=== PATIENT | female | born 1935 | race Caucasian/White ===

== ENCOUNTER 2020-10-26 14:08 | Outpatient (CLI) | payer MEDICARE ==
[2020-10-26 17:32] LABS: #Basophils 0.1 10x3/uL (0.0-0.2); #Eosinphils 0.3 10x3/uL (0.0-0.5); #Neutrophils 5.4 10x3/uL (1.5-8.4); %Basophils 0.8 % (0.0-2.0); %Lymphocytes 34.2 % (18.0-47.0); %Monocytes 9.9 % (0.0-10.0); %Neutrophils 51.6 % (40.0-75.0); Mean Corpuscular HGB CONC 32.1 g/dL (32.0-36.0); Mean Corpuscular Hemoglobin 31.3 pg (27.0-33.0); Mean Corpuscular Volume 97.4 fl (81.6-98.3); Mean Platelet Volume 10.3 fl (7.4-10.4); Platelet Count 259 10x3/uL (150-450); RBC Distribution Width 13.9 % (11.5-14.5); Red Blood Cell (RBC) Count 3.52 10x6/uL (3.90-5.03); White Blood Cell (WBC) Count 10.5 10x3/uL (3.5-10.5)
[2020-10-26 17:36] LABS: Anion Gap 14 mmol/L (10-20); BUN (Urea Nitrogen) 37 mg/dL (9.8-20.1); Calc. Creatinine Clearance 0 mL/min (70-130); Calcium 9.4 mg/dL (7.8-10.44); Carbon Dioxide 25 mmol/L (23-31); Chloride 104 mmol/L (98-107); Glucose 92 mg/dL (83-110); Potassium 4.4 mmol/L (3.5-5.1); Sodium 139 mmol/L (136-145)
[2020-10-26 18:04] LABS: INR-International Normal Ratio 1.1; Prothrombin Time 12.4 sec (9.5-12.1)
[2020-10-27 01:52] LABS: SARS-CoV-2 PCR by NAA Not Detected (NotDetected)
== END 2020-10-26 14:09 | disposition home or self-care (01) ==
LOC: LABBT 14:08
PROVIDERS: ATTEND Orthopaedic Surgery
DX: Z01.818 Encounter for other preprocedural examination (principal); Z20.822 Contact with and (suspected) exposure to COVID-19; M17.12 Unilateral primary osteoarthritis, left knee
CPT/HCPCS: 80048; 85025; 85610; 87081; 93005; U0003; U0005; 87635; 93010

== ENCOUNTER 2020-10-31 07:52 | Inpatient (IN) | payer MEDICARE ==
[2020-10-31] MEDS ORDERED: Zolpidem Tartrate 5 MG TAB PO PRN ×2 (08:41→10:15)
[2020-10-31] MEDS ORDERED: Fentanyl 100 MCG/2 ML VIAL SLOW IVP PRN (08:41)
[2020-10-31] MEDS ORDERED: HYDROcodone/Acetaminophen 10/325 mg Tablet PO PRN ×3 (08:41→10:15)
[2020-10-31] MEDS ORDERED: diphenhydrAMINE 25 MG CAP PO PRN (08:41)
[2020-10-31] MEDS ORDERED: Acetaminophen 325 MG TAB PO PRN (08:41)
[2020-10-31] MEDS ORDERED: Promethazine HCl 25 MG/ML VIAL IM PRN ×3 (08:41→11:42)
[2020-10-31] MEDS ORDERED: Ondansetron PF 4 MG/2 ML Vial IVP PRN ×2 (08:41→10:15)
[2020-10-31] MEDS ORDERED: Midazolam HCl 2 mg/2 ml Vial ONE (09:10)
[2020-10-31] MEDS ORDERED: Fentanyl 100 MCG/2 ML VIAL ONE ×3 (09:11→12:46)
[2020-10-31] MEDS ORDERED: Tranexamic Acid 1,000 MG/10 ML VIAL ONE (09:41)
[2020-10-31] MEDS ORDERED: Sodium Chloride 0.9% 100 ML ONE (09:41)
[2020-10-31] MEDS ORDERED: Vancomycin 1.5 GRAM/300 ML BAG 1.5 GM in Premix Bag 1 BAG IVPB SCH (09:45)
[2020-10-31] MEDS ORDERED: Fentanyl 100 MCG/2 ML VIAL IV PRN (10:10)
[2020-10-31] MEDS ORDERED: traMADol HCl 50 MG TAB PO PRN ×2 (10:15)
[2020-10-31] MEDS ORDERED: Ropivacaine 0.2% 550 ML 550 ML NERVE BLCK SCH (10:15)
[2020-10-31] MEDS ORDERED: Ropivacaine 0.5% HCl/PF (150 MG/30 ML VIAL) ONE (10:21)
[2020-10-31] MEDS ORDERED: Dexamethasone 20 MG/5 ML VIAL ONE (10:21)
[2020-10-31] MEDS ORDERED: PROPOFOL 200 MG/20 ML VIAL ONE (10:21)
[2020-10-31] MEDS ORDERED: Ondansetron PF 4 MG/2 ML Vial ONE (10:21)
[2020-10-31] MEDS ORDERED: Lidocaine 1% PF 5 ML VIAL ONE (10:21)
[2020-10-31] MEDS ORDERED: Ropivacaine 2% HCl/PF (20 MG/10 ML VIAL) ONE (10:21)
[2020-10-31] MEDS ORDERED: Promethazine HCl 25 MG/ML VIAL SLOW IVP PRN (11:42)
[2020-10-31] MEDS ORDERED: Ondansetron HCl/PF 4 MG/2 ML Vial IVP PRN (11:42)
[2020-10-31] MEDS ORDERED: CEFAZOLIN 2 GM in Premix Bag 1 BAG IVPB SCH (14:00)
[2020-10-31] MEDS: Ketorolac Tromethamine 30 MG/ML VIAL IVP SCH ×2 (18:41→20:11)
[2020-10-31] MEDS: Sodium Chloride 0.9% 1,000 ML IV SCH ×2 (20:05→21:50)
[2020-10-31] MEDS: Amiodarone 200 MG TAB PO SCH (20:06)
[2020-10-31] MEDS: Amlodipine 10 MG TAB PO SCH (20:06)
[2020-10-31] MEDS: Aspirin 81 mg Enteric Coated Tablet PO SCH ×2 (20:10→21:50)
[2020-10-31] MEDS: Ferrous Gluconate 324 MG TAB PO SCH ×2 (20:10→21:50)
[2020-10-31] MEDS: Ezetimibe 10 MG TAB PO SCH (20:10)
[2020-10-31] MEDS: hydrALAZINE 25 MG TAB PO SCH ×2 (20:10→21:52)
[2020-10-31] MEDS: Losartan 25 MG TAB PO SCH (20:10)
[2020-10-31] MEDS: carBAMazepine 100 mg Chewable Tablet PO SCH ×2 (20:10→21:50)
[2020-10-31] MEDS: Furosemide 40 MG TAB PO SCH (20:10)
[2020-10-31] MEDS: Senokot S 8.6-50 MG TAB PO SCH ×2 (20:11→21:49)
[2020-10-31] MEDS: Multivitamin W/ Minerals 1 TAB PO SCH (20:11)
[2020-10-31] MEDS: Atorvastatin Calcium 40 MG TAB PO SCH (21:50)
[2020-11-01] MEDS: Ketorolac Tromethamine 30 MG/ML VIAL IVP SCH ×2 (00:56→05:22)
[2020-11-01] MEDS ORDERED: CEFAZOLIN 2 GM in Premix Bag 1 BAG IVPB SCH (02:00)
[2020-11-01] MEDS: Sodium Chloride 0.9% 1,000 ML IV SCH ×3 (04:26→23:39)
[2020-11-01 06:21] LABS: #Eosinphils 0.1 thou/uL (0.0-0.7); #Lymphocytes 3.4 thou/uL (1.20-3.40); #Monocytes 1.8 thou/uL (0.11-0.59); #Neutrophils 7.9 thou/uL (1.40-6.50); %Basophils 0.2 % (0.0-1.0); %Eosinophils 0.4 % (0.0-10.0); %Lymphocytes 25.5 % (21.0-51.0); %Monocytes 13.3 % (0.0-10.0); %Neutrophils 60.6 % (42.0-75.0); Hemoglobin 9.2 g/dL (12.0-16.0); Mean Corpuscular HGB CONC 32.9 g/dL (32.0-36.0); Mean Corpuscular Hemoglobin 31.4 pg (27.0-31.0); Mean Corpuscular Hemoglobin 31.6 pg (27.0-31.0); Mean Corpuscular Volume 95.7 fL (78.0-98.0); Mean Corpuscular Volume 95.8 fL (78.0-98.0); Mean Platelet Volume 7.4 fL (7.4-10.4); Mean Platelet Volume 7.6 fL (7.4-10.4); Platelet Count 167 thou/uL (130-400); Platelet Count 168 thou/uL (130-400); RBC Distribution Width 12.8 % (11.5-14.5); Red Blood Cell (RBC) Count 2.92 mill/uL (4.20-5.40); White Blood Cell (WBC) Count 13.1 thou/uL (4.8-10.8)
[2020-11-01 06:27] LABS: Hemoglobin A1c 5.8 % (4.0-6.0)
[2020-11-01 06:41] LABS: Anion Gap 13 mmol/L (10-20); BUN (Urea Nitrogen) 30 mg/dL (9.8-20.1); Calc. Creatinine Clearance 33 mL/min (70-130); Calcium 8.5 mg/dL (7.8-10.44); Carbon Dioxide 23 mmol/L (23-31); Chloride 104 mmol/L (98-107); Cholesterol 127 mg/dl (< 200 Desired); Glucose 104 mg/dL (83-110); HDL Cholesterol 43 mg/dL (>60 Neg Risk); LDL Cholesterol, Calculated 67 mg/dL; Potassium 4.5 mmol/L (3.5-5.1); Sodium 135 mmol/L (136-145); Triglycerides 87 mg/dL (Less than 150)
[2020-11-01] MEDS: carBAMazepine 100 mg Chewable Tablet PO SCH ×2 (09:19→20:50)
[2020-11-01] MEDS: Amiodarone 200 MG TAB PO SCH (09:19)
[2020-11-01] MEDS: Losartan 25 MG TAB PO SCH (09:20)
[2020-11-01] MEDS: Furosemide 40 MG TAB PO SCH (09:21)
[2020-11-01] MEDS: Ferrous Gluconate 324 MG TAB PO SCH ×2 (09:21→20:50)
[2020-11-01] MEDS: Multivitamin W/ Minerals 1 TAB PO SCH (09:21)
[2020-11-01] MEDS: Alogliptin 25 MG TAB PO SCH (09:21)
[2020-11-01] MEDS: Amlodipine 10 MG TAB PO SCH (09:21)
[2020-11-01] MEDS: Aspirin 81 mg Enteric Coated Tablet PO SCH ×2 (09:21→20:50)
[2020-11-01] MEDS: hydrALAZINE 25 MG TAB PO SCH ×2 (09:22→20:51)
[2020-11-01] MEDS: Ezetimibe 10 MG TAB PO SCH (09:22)
[2020-11-01] MEDS: HYDROcodone/Acetaminophen 10/325 mg Tablet PO PRN ×2 (09:31→21:21)
[2020-11-01] MEDS: Senokot S 8.6-50 MG TAB PO SCH ×2 (09:32→20:50)
[2020-11-01] MEDS: Spironolactone 100 MG TAB PO SCH (10:01)
[2020-11-01] MEDS: Atorvastatin Calcium 40 MG TAB PO SCH (20:50)
[2020-11-02] MEDS: HYDROcodone/Acetaminophen 10/325 mg Tablet PO PRN (04:08)
[2020-11-02 05:22] LABS: Hemoglobin 9.6 g/dL (12.0-16.0); Mean Corpuscular HGB CONC 32.7 g/dL (32.0-36.0); Mean Corpuscular Hemoglobin 31.9 pg (27.0-31.0); Mean Corpuscular Volume 97.4 fL (78.0-98.0); Mean Platelet Volume 8.2 fL (7.4-10.4); Platelet Count 170 thou/uL (130-400); RBC Distribution Width 12.9 % (11.5-14.5); White Blood Cell (WBC) Count 15.7 thou/uL (4.8-10.8)
[2020-11-02] MEDS ORDERED: Bisacodyl 10 MG SUPP PR PRN (08:29)
[2020-11-02] MEDS: Multivitamin W/ Minerals 1 TAB PO SCH (08:51)
[2020-11-02] MEDS: Ferrous Gluconate 324 MG TAB PO SCH ×2 (08:51→23:16)
[2020-11-02] MEDS: hydrALAZINE 25 MG TAB PO SCH ×2 (08:51→23:15)
[2020-11-02] MEDS: Senokot S 8.6-50 MG TAB PO SCH (08:51)
[2020-11-02] MEDS: Losartan 25 MG TAB PO SCH (08:51)
[2020-11-02] MEDS: Amiodarone 200 MG TAB PO SCH (08:52)
[2020-11-02] MEDS: Aspirin 81 mg Enteric Coated Tablet PO SCH ×2 (08:52→23:14)
[2020-11-02] MEDS: Furosemide 40 MG TAB PO SCH (08:52)
[2020-11-02] MEDS: Amlodipine 10 MG TAB PO SCH (08:52)
[2020-11-02] MEDS: carBAMazepine 100 mg Chewable Tablet PO SCH ×2 (08:52→23:14)
[2020-11-02] MEDS: Alogliptin 25 MG TAB PO SCH (08:52)
[2020-11-02] MEDS: Ezetimibe 10 MG TAB PO SCH (08:53)
[2020-11-02] MEDS: Spironolactone 100 MG TAB PO SCH (08:53)
[2020-11-02] MEDS: Sodium Chloride 0.9% 1,000 ML IV SCH ×2 (11:08→21:46)
[2020-11-02] MEDS ORDERED: Magnesium Citrate 300 ML BOT PO SCH (11:45)
[2020-11-02] MEDS ORDERED: Fleet Enema 133 ML BOT FS SCH (12:30)
[2020-11-02] MEDS ORDERED: Polyethylene Glycol 3350 17 GM Packet PO SCH (15:00)
[2020-11-02] MEDS ORDERED: Morphine 4 MG/ML VIAL SLOW IVP PRN (20:46)
[2020-11-03 05:43] LABS: Anion Gap 14 mmol/L (10-20); BUN (Urea Nitrogen) 28 mg/dL (9.8-20.1); Calc. Creatinine Clearance 32 mL/min (70-130); Calcium 8.6 mg/dL (7.8-10.44); Carbon Dioxide 25 mmol/L (23-31); Chloride 99 mmol/L (98-107); Glucose 124 mg/dL (83-110); Potassium 4.5 mmol/L (3.5-5.1); Sodium 133 mmol/L (136-145)
[2020-11-03] MEDS: Morphine 4 MG/ML VIAL SLOW IVP PRN ×2 (07:33→08:25)
[2020-11-03] MEDS: Sodium Chloride 0.9% 1,000 ML IV SCH ×3 (07:37→20:45)
[2020-11-03] MEDS ORDERED: Metoclopramide HCl 10 MG/2 ML VIAL IVP SCH (08:15)
[2020-11-03 08:25] LABS: Hemoglobin 10.2 g/dL (12.0-16.0); Mean Corpuscular HGB CONC 32.2 g/dL (32.0-36.0); Mean Corpuscular Hemoglobin 30.8 pg (27.0-31.0); Mean Corpuscular Volume 95.7 fL (78.0-98.0); Mean Platelet Volume 7.8 fL (7.4-10.4); Platelet Count 199 thou/uL (130-400); RBC Distribution Width 13.1 % (11.5-14.5); Red Blood Cell (RBC) Count 3.31 mill/uL (4.20-5.40); White Blood Cell (WBC) Count 8.5 thou/uL (4.8-10.8)
[2020-11-03 08:45] LABS: Band 49 % (5-11); Lymphocytes 13 % (21-51); MDiff Complete? YES; Metamyelocyte 9 % (0-0); Monocytes 8 % (0-10); Neutrophil 21 % (42-75); Polychromasia SLIGHT = 2-3 cells (100X) (0-2/hpf); Reflex for Review?? YES; Vacuoles SLIGHT
[2020-11-03] MEDS: Spironolactone 100 MG TAB PO SCH (10:54)
[2020-11-03] MEDS: carBAMazepine 100 mg Chewable Tablet PO SCH ×2 (10:54→20:55)
[2020-11-03] MEDS: Amlodipine 10 MG TAB PO SCH (10:54)
[2020-11-03] MEDS: Aspirin 81 mg Enteric Coated Tablet PO SCH (10:54)
[2020-11-03] MEDS: Amiodarone 200 MG TAB PO SCH (10:54)
[2020-11-03] MEDS: Ezetimibe 10 MG TAB PO SCH (10:55)
[2020-11-03] MEDS: Losartan 25 MG TAB PO SCH (10:55)
[2020-11-03] MEDS: Ferrous Gluconate 324 MG TAB PO SCH (10:55)
[2020-11-03] MEDS: hydrALAZINE 25 MG TAB PO SCH (10:55)
[2020-11-03] MEDS ORDERED: Iopamidol 370 76% 50 ML VIAL FS ONE (11:04)
[2020-11-03] MEDS ORDERED: Sodium Chloride 0.9% 10 ML ONE (11:05)
[2020-11-03] MEDS ORDERED: Bupivacaine 0.25% HCL 30 ML VIAL ONE (11:05)
[2020-11-03] MEDS ORDERED: Lidocaine 1% w/Epinephrine 1:100K 20 ML VIAL ONE (11:05)
[2020-11-03] MEDS ORDERED: Levofloxacin 500 mg/D5W 100 ml Premix Bag ONE ×2 (11:12→11:42)
[2020-11-03] MEDS ORDERED: Fentanyl 250 MCG/5 ML VIAL ONE (11:41)
[2020-11-03] MEDS ORDERED: Fentanyl 100 MCG/2 ML VIAL ONE (11:43)
[2020-11-03] MEDS ORDERED: PHENYLEPHRINE-NS 100 MCG/ML 10 ML SYRINGE ONE (12:11)
[2020-11-03] MEDS ORDERED: Lidocaine 1% PF 5 ML VIAL ONE (12:11)
[2020-11-03] MEDS ORDERED: Rocuronium Bromide 10 MG/ML (10ML VIAL) ONE (12:11)
[2020-11-03] MEDS ORDERED: Ondansetron PF 4 MG/2 ML Vial ONE (12:11)
[2020-11-03] MEDS ORDERED: ePHEDrine Sulfate 50 MG/10 ML VIAL ONE (12:11)
[2020-11-03] MEDS ORDERED: Glycopyrrolate 0.2 MG/ML 5 ML SYRINGE ONE (12:11)
[2020-11-03] MEDS ORDERED: Succinylcholine 200 MG/10 ml SYRINGE FS ONE (12:11)
[2020-11-03] MEDS ORDERED: Dexamethasone 20 MG/5 ML VIAL ONE (12:11)
[2020-11-03] MEDS ORDERED: PROPOFOL 200 MG/20 ML VIAL ONE (12:11)
[2020-11-03] MEDS ORDERED: Bupivacaine HCl 0.5%/Epinephrine 1:200,000/PF 30 ml Vial ONE (14:00)
[2020-11-03] MEDS ORDERED: SUGAMMADEX SODIUM 200 MG/2 ML VIAL ONE (14:05)
[2020-11-03] MEDS ORDERED: Ondansetron HCl/PF 4 MG/2 ML Vial IVP PRN (14:16)
[2020-11-03] MEDS ORDERED: Promethazine HCl 25 MG/ML VIAL IM PRN (14:16)
[2020-11-03] MEDS ORDERED: Promethazine HCl 25 MG/ML VIAL SLOW IVP PRN (14:16)
[2020-11-03] MEDS ORDERED: Labetalol HCl 100 MG/20 ML VIAL SLOW IVP PRN (16:00)
[2020-11-03] MEDS ORDERED: hydrALAZINE 20 MG/ML VIAL SLOW IVP PRN (16:00)
[2020-11-03] MEDS: Pantoprazole 40 MG VIAL IVP SCH (20:54)
[2020-11-03] MEDS: Enoxaparin Sodium 30 MG/0.3 ML SYRINGE SC SCH (20:55)
[2020-11-04 05:17] LABS: Hemoglobin 8.2 g/dL (12.0-16.0); Mean Corpuscular HGB CONC 31.8 g/dL (32.0-36.0); Mean Corpuscular Hemoglobin 30.6 pg (27.0-31.0); Mean Corpuscular Volume 96.4 fL (78.0-98.0); Mean Platelet Volume 7.7 fL (7.4-10.4); Platelet Count 193 thou/uL (130-400); Red Blood Cell (RBC) Count 2.69 mill/uL (4.20-5.40); White Blood Cell (WBC) Count 11.7 thou/uL (4.8-10.8)
[2020-11-04] MEDS: Sodium Chloride 0.9% 1,000 ML IV SCH ×4 (05:20→20:32)
[2020-11-04 05:33] LABS: Anion Gap 10 mmol/L (10-20); BUN (Urea Nitrogen) 35 mg/dL (9.8-20.1); Calc. Creatinine Clearance 31 mL/min (70-130); Calcium 8.3 mg/dL (7.8-10.44); Carbon Dioxide 24 mmol/L (23-31); Chloride 103 mmol/L (98-107); Glucose 100 mg/dL (83-110); Potassium 4.8 mmol/L (3.5-5.1); Sodium 132 mmol/L (136-145)
[2020-11-04 05:46] LABS: Band 60 % (5-11); Eosinophils 1 % (0-10); Lymphocytes 11 % (21-51); MDiff Complete? YES; Metamyelocyte 3 % (0-0); Monocytes 1 % (0-10); Neutrophil 24 % (42-75)
[2020-11-04] MEDS: Losartan 25 MG TAB PO SCH (10:20)
[2020-11-04] MEDS: Pantoprazole 40 MG VIAL IVP SCH ×2 (10:20→20:32)
[2020-11-04] MEDS: carBAMazepine 100 mg Chewable Tablet PO SCH ×2 (10:21→20:31)
[2020-11-04] MEDS: Spironolactone 100 MG TAB PO SCH (10:22)
[2020-11-04] MEDS: Amiodarone 200 MG TAB PO SCH (10:22)
[2020-11-04] MEDS: Enoxaparin Sodium 30 MG/0.3 ML SYRINGE SC SCH (20:32)
[2020-11-05] MEDS: Sodium Chloride 0.9% 1,000 ML IV SCH ×4 (02:02→12:57)
[2020-11-05] MEDS: Pantoprazole 40 MG VIAL IVP SCH ×2 (09:38→21:48)
[2020-11-05] MEDS: Spironolactone 100 MG TAB PO SCH (09:38)
[2020-11-05] MEDS: Losartan 25 MG TAB PO SCH (09:41)
[2020-11-05] MEDS: Amiodarone 200 MG TAB PO SCH (09:42)
[2020-11-05] MEDS: carBAMazepine 100 mg Chewable Tablet PO SCH ×2 (09:42→21:47)
[2020-11-05 09:47] LABS: Hemoglobin 8.3 g/dL (12.0-16.0); Mean Corpuscular HGB CONC 33.2 g/dL (32.0-36.0); Mean Corpuscular Volume 96.5 fL (78.0-98.0); Mean Platelet Volume 7.7 fL (7.4-10.4); Platelet Count 189 thou/uL (130-400); RBC Distribution Width 13.2 % (11.5-14.5); Red Blood Cell (RBC) Count 2.59 mill/uL (4.20-5.40); White Blood Cell (WBC) Count 20.1 thou/uL (4.8-10.8)
[2020-11-05 09:53] LABS: MDiff Complete? YES
[2020-11-05 09:54] LABS: Band 9 % (5-11); Eosinophils 1 % (0-10); Lymphocytes 5 % (21-51); Monocytes 7 % (0-10); Neutrophil 78 % (42-75); Platelet Morphology Comment Appears Adequate; RBC Morphology Normal; Toxic Granulation SLIGHT; Vacuoles SLIGHT
[2020-11-05 10:03] LABS: Anion Gap 17 mmol/L (10-20); BUN (Urea Nitrogen) 30 mg/dL (9.8-20.1); Calc. Creatinine Clearance 39 mL/min (70-130); Calcium 8.6 mg/dL (7.8-10.44); Carbon Dioxide 13 mmol/L (23-31); Chloride 112 mmol/L (98-107); Glucose 74 mg/dL (83-110); Potassium 5.2 mmol/L (3.5-5.1); Sodium 137 mmol/L (136-145)
[2020-11-05] MEDS ORDERED: Vancomycin HCl 1 GM in Sodium Chloride 0.9% 250 ML 250 ML IVPB SCH (11:00)
[2020-11-05 11:30] LABS: Actual Bicarbonate (HCO3a) 18.4 mEq/L (22-28); Base Excess (BEa) -6.2 mEq/L (-2.0 to +3.0); CO2 Tension 32.8 mmHg (35.0-45.0); Calcium, Ionized (arterial) 1.17 mmol/L (1.12-1.30); Carboxyhemoglobin (COHb) 0.3 gm% (0.0-3.0); Hemoglobin (Hb) 9.4 g/dL (12.0-16.0); O2 Tension (PaO2), arterial 72.6 mmHg (> 60.0); Potassium - ABG Lab 4.31 mmol/L (3.70-5.30); pH, Arterial 7.37 (7.35-7.45)
[2020-11-05] MEDS ORDERED: Lactated Ringer's 1,000 ML IV SCH (11:30)
[2020-11-05 11:32] LABS: Puncture Site RBA
[2020-11-05] MEDS ORDERED: Iopamidol 370 76% 50 ML VIAL FS ONE (12:00)
[2020-11-05] MEDS ORDERED: Iopamidol-370 76% 500 ML 1 ML ONE (12:00)
[2020-11-05 12:03] LABS: Lactic Acid 0.9 mmol/L (0.5-2.2)
[2020-11-05] MEDS: Vancomycin HCl 750 MG in Sodium Chloride 0.9% 250 ML 250 ML IVPB SCH (12:38)
[2020-11-05 14:21] LABS: Anion Gap 14 mmol/L (10-20); BUN (Urea Nitrogen) 29 mg/dL (9.8-20.1); Calc. Creatinine Clearance 40 mL/min (70-130); Calcium 8.9 mg/dL (7.8-10.44); Carbon Dioxide 19 mmol/L (23-31); Chloride 109 mmol/L (98-107); Glucose 80 mg/dL (83-110); Potassium 4.4 mmol/L (3.5-5.1); Sodium 138 mmol/L (136-145)
[2020-11-05] MEDS ORDERED: Furosemide 40 MG/4 ML VIAL SLOW IVP SCH (14:30)
[2020-11-05] MEDS: metroNIDAZOLE 500 MG in Premix Bag 1 BAG IVPB SCH ×2 (17:30→21:48)
[2020-11-05] MEDS: Enoxaparin Sodium 30 MG/0.3 ML SYRINGE SC SCH (22:11)
[2020-11-06 05:31] LABS: ALT (SGPT) 47 U/L (8-55); AST (SGOT) 65 U/L (5-34); Albumin 2.5 g/dL (3.4-4.8); Alkaline Phosphatase 63 U/L (40-110); Anion Gap 16 mmol/L (10-20); BUN (Urea Nitrogen) 34 mg/dL (9.8-20.1); Bilirubin, Total 0.5 mg/dL (0.2-1.2); Calc. Creatinine Clearance 35 mL/min (70-130); Calcium 8.7 mg/dL (7.8-10.44); Carbon Dioxide 21 mmol/L (23-31); Chloride 104 mmol/L (98-107); Globulin 3.8 g/dL (2.4-3.5); Glucose 80 mg/dL (83-110); Protein, Total 6.3 g/dL (5.8-8.1); Sodium 137 mmol/L (136-145)
[2020-11-06 06:13] LABS: Hemoglobin 8.5 g/dL (12.0-16.0); Mean Corpuscular HGB CONC 33.3 g/dL (32.0-36.0); Mean Corpuscular Hemoglobin 32.3 pg (27.0-31.0); Mean Corpuscular Volume 97.2 fL (78.0-98.0); Mean Platelet Volume 7.9 fL (7.4-10.4); Platelet Count 231 thou/uL (130-400); RBC Distribution Width 13.4 % (11.5-14.5); Red Blood Cell (RBC) Count 2.63 mill/uL (4.20-5.40); White Blood Cell (WBC) Count 18.8 thou/uL (4.8-10.8)
[2020-11-06 06:42] LABS: Band 16 % (5-11); Lymphocytes 17 % (21-51); MDiff Complete? YES; Monocytes 4 % (0-10); Neutrophil 63 % (42-75)
[2020-11-06] MEDS: metroNIDAZOLE 500 MG in Premix Bag 1 BAG IVPB SCH ×3 (06:42→21:07)
[2020-11-06] MEDS: Pantoprazole 40 MG VIAL IVP SCH ×2 (09:30→21:07)
[2020-11-06] MEDS: carBAMazepine 100 mg Chewable Tablet PO SCH ×2 (09:31→21:06)
[2020-11-06] MEDS: Amiodarone 200 MG TAB PO SCH ×2 (09:38→21:06)
[2020-11-06] MEDS: Losartan 25 MG TAB PO SCH (09:38)
[2020-11-06] MEDS ORDERED: traMADol HCl 50 MG TAB PO PRN (11:20)
[2020-11-06] MEDS ORDERED: Metoprolol Tartrate 25 MG TAB PO SCH (12:15)
[2020-11-06] MEDS: Acetaminophen 500 MG TAB PO SCH ×2 (12:42→17:19)
[2020-11-06] MEDS: Vancomycin HCl 750 MG in Sodium Chloride 0.9% 250 ML 250 ML IVPB SCH (12:42)
[2020-11-06] MEDS: Gabapentin 300 MG CAP PO SCH ×2 (14:09→21:05)
[2020-11-06] MEDS: Enoxaparin Sodium 30 MG/0.3 ML SYRINGE SC SCH (21:04)
[2020-11-06] MEDS: Metoprolol Tartrate 50 MG TAB PO SCH (21:06)
[2020-11-07] MEDS: Acetaminophen 500 MG TAB PO SCH ×5 (00:05→18:11)
[2020-11-07 05:22] LABS: Hemoglobin 7.2 g/dL (12.0-16.0); Mean Corpuscular HGB CONC 30.2 g/dL (32.0-36.0); Mean Corpuscular Hemoglobin 29.3 pg (27.0-31.0); Mean Corpuscular Volume 96.8 fL (78.0-98.0); Mean Platelet Volume 7.6 fL (7.4-10.4); Platelet Count 241 thou/uL (130-400); RBC Distribution Width 13.2 % (11.5-14.5); Red Blood Cell (RBC) Count 2.46 mill/uL (4.20-5.40); White Blood Cell (WBC) Count 13.3 thou/uL (4.8-10.8)
[2020-11-07 05:32] LABS: Anion Gap 13 mmol/L (10-20); BUN (Urea Nitrogen) 31 mg/dL (9.8-20.1); Calc. Creatinine Clearance 45 mL/min (70-130); Calcium 8.5 mg/dL (7.8-10.44); Carbon Dioxide 22 mmol/L (23-31); Chloride 107 mmol/L (98-107); Glucose 102 mg/dL (83-110); Sodium 138 mmol/L (136-145)
[2020-11-07 05:55] LABS: Band 23 % (5-11); Eosinophils 2 % (0-10); Lymphocytes 5 % (21-51); MDiff Complete? YES; Monocytes 12 % (0-10); Neutrophil 58 % (42-75)
[2020-11-07] MEDS: metroNIDAZOLE 500 MG in Premix Bag 1 BAG IVPB SCH (06:20)
[2020-11-07] MEDS: Metoprolol Tartrate 50 MG TAB PO SCH ×2 (08:43→20:20)
[2020-11-07] MEDS: Losartan 25 MG TAB PO SCH (08:43)
[2020-11-07] MEDS: Amiodarone 200 MG TAB PO SCH ×2 (08:43→20:20)
[2020-11-07] MEDS: carBAMazepine 100 mg Chewable Tablet PO SCH ×2 (08:43→20:20)
[2020-11-07] MEDS: Gabapentin 300 MG CAP PO SCH ×3 (08:43→20:20)
[2020-11-07] MEDS: Pantoprazole 40 MG VIAL IVP SCH (08:44)
[2020-11-07] MEDS ORDERED: Fluconazole In NaCl,Iso-Osm 200 MG in Premix Bag 1 BAG IVPB SCH (14:00)
[2020-11-07] MEDS: Rivaroxaban 10 MG TAB PO SCH (16:03)
[2020-11-08] MEDS: Acetaminophen 500 MG TAB PO SCH ×4 (00:09→17:21)
[2020-11-08 05:28] LABS: Band 12 % (5-11); Eosinophils 1 % (0-10); Hemoglobin 7.8 g/dL (12.0-16.0); Hypochromia SLIGHT = 6-15 cells (100X) (0-5/hpf); Lymphocytes 7 % (21-51); MDiff Complete? YES; Mean Corpuscular HGB CONC 31.2 g/dL (32.0-36.0); Mean Corpuscular Hemoglobin 30.6 pg (27.0-31.0); Mean Corpuscular Volume 98.1 fL (78.0-98.0); Mean Platelet Volume 7.6 fL (7.4-10.4); Monocytes 4 % (0-10); Neutrophil 76 % (42-75); Platelet Count 253 thou/uL (130-400); Platelet Morphology Comment Appears Adequate; RBC Distribution Width 13.4 % (11.5-14.5); Red Blood Cell (RBC) Count 2.54 mill/uL (4.20-5.40); White Blood Cell (WBC) Count 16.3 thou/uL (4.8-10.8)
[2020-11-08 06:31] LABS: Anion Gap 14 mmol/L (10-20); BUN (Urea Nitrogen) 29 mg/dL (9.8-20.1); Calc. Creatinine Clearance 53 mL/min (70-130); Calcium 8.4 mg/dL (7.8-10.44); Carbon Dioxide 21 mmol/L (23-31); Chloride 106 mmol/L (98-107); Glucose 93 mg/dL (83-110); Potassium 3.9 mmol/L (3.5-5.1); Sodium 137 mmol/L (136-145)
[2020-11-08] MEDS: Gabapentin 300 MG CAP PO SCH ×3 (08:05→20:12)
[2020-11-08] MEDS: Metoprolol Tartrate 50 MG TAB PO SCH ×2 (08:05→20:12)
[2020-11-08] MEDS: Amiodarone 200 MG TAB PO SCH ×2 (08:05→20:12)
[2020-11-08] MEDS: Losartan 25 MG TAB PO SCH (08:05)
[2020-11-08] MEDS: carBAMazepine 100 mg Chewable Tablet PO SCH ×2 (08:05→20:12)
[2020-11-08 08:28] VITALS: BMI 35.6
[2020-11-08] MEDS: Rivaroxaban 10 MG TAB PO SCH (17:21)
[2020-11-09] MEDS: Acetaminophen 500 MG TAB PO SCH ×3 (00:31→12:22)
[2020-11-09] MEDS: Metoprolol Tartrate 50 MG TAB PO SCH (08:21)
[2020-11-09] MEDS: carBAMazepine 100 mg Chewable Tablet PO SCH (08:21)
[2020-11-09] MEDS: Amiodarone 200 MG TAB PO SCH (08:21)
[2020-11-09] MEDS: Gabapentin 300 MG CAP PO SCH ×2 (08:21→15:29)
[2020-11-09] MEDS: Losartan 25 MG TAB PO SCH (08:21)
[2020-11-09] MEDS: Rivaroxaban 10 MG TAB PO SCH (15:29)
[2020-11-09 16:29] VITALS: BP 134/60; TEMP 98.2
[2020-11-13] MEDS ORDERED: Amiodarone 200 MG TAB PO SCH (09:00)
== END 2020-11-09 16:15 | disposition swing bed (61) | DRG 469 ==
LOC: SDC 07:52 → SURG A 18:24 → 2NO 11-05 16:33
PROVIDERS: ADMIT Hospitalist; ATTEND Internal Medicine
PROC: 0SRC0J9 Replacement of Right Knee Joint with Synthetic Substitute, Cemented, Open Approach (ICD-10-PCS; principal; 2020-10-31)
PROC: 0DQ70ZZ Repair Stomach, Pylorus, Open Approach (ICD-10-PCS; 2020-11-03)
PROC: 0DU907Z Supplement Duodenum with Autologous Tissue Substitute, Open Approach (ICD-10-PCS; 2020-11-03)
PROC: 02H633Z Insertion of Infusion Device into Right Atrium, Percutaneous Approach (ICD-10-PCS; 2020-11-03)
DX: M17.12 Unilateral primary osteoarthritis, left knee (principal); Z20.822 Contact with and (suspected) exposure to COVID-19; K26.5 Chronic or unspecified duodenal ulcer with perforation; K25.5 Chronic or unspecified gastric ulcer with perforation; K65.9 Peritonitis, unspecified; A41.9 Sepsis, unspecified organism; K56.7 Ileus, unspecified; N18.4 Chronic kidney disease, stage 4 (severe); I13.0 Hypertensive heart and chronic kidney disease with heart failure and stage 1 through stage 4 chronic kidney disease, or unspecified chronic kidney disease; D62 Acute posthemorrhagic anemia; E87.2 Acidosis; E11.22 Type 2 diabetes mellitus with diabetic chronic kidney disease; G50.0 Trigeminal neuralgia; I50.9 Heart failure, unspecified; E78.5 Hyperlipidemia, unspecified; K59.09 Other constipation; E11.51 Type 2 diabetes mellitus with diabetic peripheral angiopathy without gangrene; I25.10 Atherosclerotic heart disease of native coronary artery without angina pectoris; I48.0 Paroxysmal atrial fibrillation; E78.00 Pure hypercholesterolemia, unspecified; E87.5 Hyperkalemia; Z80.7 Family history of other malignant neoplasms of lymphoid, hematopoietic and related tissues; Z90.49 Acquired absence of other specified parts of digestive tract; Z95.1 Presence of aortocoronary bypass graft; Z95.5 Presence of coronary angioplasty implant and graft; Z95.828 Presence of other vascular implants and grafts; Z98.890 Other specified postprocedural states; Z87.891 Personal history of nicotine dependence; Z81.1 Family history of alcohol abuse and dependence; Z83.3 Family history of diabetes mellitus; Z80.6 Family history of leukemia; Z82.0 Family history of epilepsy and other diseases of the nervous system; Z88.5 Allergy status to narcotic agent; Z79.01 Long term (current) use of anticoagulants; Z79.899 Other long term (current) drug therapy
CPT/HCPCS: 36415; 36416; 36600; 71045; 74018; 74019; 74022; 74176; 74177; 80048; 80053; 80061; 82805; 83036; 83605; 85025; 85027; 85060; 93005; 93010; 93306; A4306; C1713; C1751; C1776; C9113; J0690; J1100; J1450; J1650; J1885; J1940; J1956; J2250; J2270; J2405; J2704; J2765; J2795; J3010; J3370; J3490; J7050; Q9967; S0020

== ENCOUNTER 2022-06-14 14:47 | Inpatient (IN) | payer MEDICARE ==
[2022-06-14] MEDS ORDERED: TETANUS, DIPHTHERIA TOX,ADULT (TDVAX) 0.5 ML VIAL IM ONE (16:17)
[2022-06-14] MEDS ORDERED: Dextrose 5% in Water 1,000 ML IV PRN (16:17)
[2022-06-14] MEDS ORDERED: HumaLOG 300 UNITS/3 ML VIAL SC PRN (16:17)
[2022-06-14] MEDS ORDERED: Morphine 2 MG/ML VIAL SLOW IVP PRN (16:17)
[2022-06-14] MEDS ORDERED: Dextrose 50% Abboject 50 ML SYRINGE SLOW IVP PRN (16:17)
[2022-06-14] MEDS ORDERED: Melatonin 3 MG TAB PO PRN (16:21)
[2022-06-14] MEDS: Acetaminophen/Codeine 30-300mg Tablet PO SCH (17:05)
[2022-06-14] MEDS: Acetaminophen 325 MG TAB PO SCH (18:00)
[2022-06-14] MEDS ORDERED: Acetaminophen 325 MG TAB PO SCH (18:00)
[2022-06-14 19:38] VITALS: BMI 28.3
[2022-06-14] MEDS ORDERED: Famotidine/PF 20 mg/2ml Vial SLOW IVP SCH (21:00)
[2022-06-14] MEDS: Gabapentin 100 MG CAP PO SCH (21:06)
[2022-06-14] MEDS: Sodium Chloride 0.9% 1,000 ML IV SCH (21:09)
[2022-06-14 21:50] LABS: Bacteria/HPF None Seen HPF (None Seen); Bilirubin Negative (Negative); Blood, Urine Negative (Negative); CAUTI Indications for Culture Pelvic or flank pain; Clarity Clear (Clear); Glucose, Urine (Dipstick) Normal (Negative); Ketone, Urine Negative (Negative); Leukocyte Negative Leu/uL (Negative); Nitrite Negative (Negative); Protein, Urine (Dipstick) 20 mg/dL (Neg-Trace); RBC/HPF 0-3 HPF (0-3); Specific Gravity, Urine 1.012 (1.002-1.036); Squamous Epithelial 0-3 HPF (0-3); Urobilinogen Normal mg/dL (Less than 2); WBC/HPF None Seen HPF (0-3); pH, Urine 6.5 (5.0-9.0)
[2022-06-14 21:52] LABS: Urine Culture Reflex No No
[2022-06-15] MEDS: Acetaminophen/Codeine 30-300mg Tablet PO SCH ×5 (00:01→21:11)
[2022-06-15] MEDS: Acetaminophen 325 MG TAB PO SCH ×5 (00:02→23:51)
[2022-06-15 05:20] LABS: #Eosinphils 0.1 thou/uL (0.0-0.7); #Lymphocytes 4.1 thou/uL (1.20-3.40); #Neutrophils 3.9 thou/uL (1.40-6.50); %Basophils 0.3 % (0.0-1.0); %Eosinophils 1.6 % (0.0-10.0); %Lymphocytes 44.5 % (21.0-51.0); %Monocytes 10.8 % (0.0-10.0); %Neutrophils 42.8 % (42.0-75.0); Hemoglobin 10.5 g/dL (12.0-16.0); Mean Corpuscular HGB CONC 32.6 g/dL (32.0-36.0); Mean Corpuscular Volume 98.2 fl (78.0-98.0); Mean Platelet Volume 7.8 fL (7.4-10.4); Platelet Count 179 10x3/uL (130-400); RBC Distribution Width 13.6 % (11.5-14.5); Red Blood Cell (RBC) Count 3.27 mill/uL (4.20-5.40); White Blood Cell (WBC) Count 9.1 10x3/uL (4.8-10.8)
[2022-06-15 05:28] LABS: INR-International Normal Ratio 1.1; PTT 35.8 sec (22.9-36.1); Prothrombin Time 14.6 sec (12.0-14.7)
[2022-06-15 05:39] LABS: Anion Gap 10 mmol/L (10-20); BUN (Urea Nitrogen) 27 mg/dL (9.8-20.1); Calc. Creatinine Clearance 33 mL/min (70-130); Calcium 8.7 mg/dL (7.8-10.44); Carbon Dioxide 23 mmol/L (23-31); Chloride 103 mmol/L (98-107); Estimated GFR 36; Glucose 98 mg/dL (83-110); Sodium 131 mmol/L (136-145)
[2022-06-15] MEDS ORDERED: Fentanyl 100 MCG/2 ML VIAL ONE ×4 (07:44→12:43)
[2022-06-15] MEDS: Sodium Chloride 0.9% 1,000 ML IV SCH (08:39)
[2022-06-15] MEDS: Famotidine/PF 20 mg/2ml Vial SLOW IVP SCH (08:39)
[2022-06-15] MEDS ORDERED: CEFAZOLIN 2 GM in Sodium Chloride 0.9% 100 ML IVPB SCH (08:45)
[2022-06-15] MEDS: Gabapentin 100 MG CAP PO SCH ×3 (08:46→21:12)
[2022-06-15] MEDS ORDERED: Ketamine 50 MG/ML (10ML VIAL) ONE (10:28)
[2022-06-15] MEDS ORDERED: CEFAZOLIN 2 GM VIAL ONE (10:34)
[2022-06-15] MEDS ORDERED: Sodium Chloride 0.9% 100 ML ONE (10:34)
[2022-06-15] MEDS ORDERED: Dexamethasone 20 MG/5 ML VIAL ONE (10:45)
[2022-06-15] MEDS ORDERED: Ondansetron PF 4 MG/2 ML Vial ONE (10:45)
[2022-06-15] MEDS ORDERED: Lidocaine 1% PF 5 ML VIAL ONE (10:45)
[2022-06-15] MEDS ORDERED: PROPOFOL 200 MG/20 ML VIAL ONE (10:45)
[2022-06-15] MEDS ORDERED: Promethazine HCl 25 MG/ML VIAL IM PRN (11:24)
[2022-06-15] MEDS ORDERED: Ondansetron HCl/PF 4 MG/2 ML Vial IVP PRN (11:24)
[2022-06-15] MEDS ORDERED: Promethazine HCl 25 MG/ML VIAL IVPB PRN (11:24)
[2022-06-15] MEDS ORDERED: PACU-Morphine 4MG/ML VIAL SLOW IVP PRN (11:24)
[2022-06-15] MEDS ORDERED: HYDROmorphone 2 MG/ML VIAL SLOW IVP PRN (11:24)
[2022-06-15] MEDS ORDERED: Morphine Sulfate 2 MG/ML SYRINGE SLOW IVP PRN (11:24)
[2022-06-15] MEDS: Morphine 4 MG/ML VIAL SLOW IVP PRN (15:28)
[2022-06-15] MEDS: CEFAZOLIN 2 GM in Sodium Chloride 0.9% 100 ML IVPB SCH (18:21)
[2022-06-15] MEDS: Atorvastatin Calcium 40 MG TAB PO SCH (21:12)
[2022-06-15] MEDS: carBAMazepine 100 mg Chewable Tablet PO SCH (21:12)
[2022-06-15] MEDS: Losartan 25 MG TAB PO SCH (21:12)
[2022-06-16] MEDS: CEFAZOLIN 2 GM in Sodium Chloride 0.9% 100 ML IVPB SCH ×3 (01:26→18:21)
[2022-06-16] MEDS: Acetaminophen/Codeine 30-300mg Tablet PO SCH ×4 (02:33→20:36)
[2022-06-16] MEDS: Acetaminophen 325 MG TAB PO SCH ×4 (05:34→23:26)
[2022-06-16] MEDS: Levothyroxine Sodium 100 MCG TAB PO SCH (05:35)
[2022-06-16 05:48] LABS: #Eosinphils 0.1 thou/uL (0.0-0.7); #Lymphocytes 3.6 thou/uL (1.20-3.40); #Monocytes 1.4 thou/uL (0.11-0.59); #Neutrophils 5.9 thou/uL (1.40-6.50); %Basophils 0.3 % (0.0-1.0); %Eosinophils 0.6 % (0.0-10.0); %Lymphocytes 32.8 % (21.0-51.0); %Monocytes 12.8 % (0.0-10.0); %Neutrophils 53.5 % (42.0-75.0); Mean Corpuscular HGB CONC 33.6 g/dL (32.0-36.0); Mean Corpuscular Hemoglobin 33.4 pg (27.0-31.0); Mean Corpuscular Volume 99.6 fl (78.0-98.0); Mean Platelet Volume 7.8 fL (7.4-10.4); Platelet Count 160 10x3/uL (130-400); RBC Distribution Width 13.3 % (11.5-14.5); Red Blood Cell (RBC) Count 2.98 mill/uL (4.20-5.40)
[2022-06-16 06:29] LABS: Anion Gap 14 mmol/L (10-20); BUN (Urea Nitrogen) 25 mg/dL (9.8-20.1); Calc. Creatinine Clearance 33 mL/min (70-130); Calcium 8.9 mg/dL (7.8-10.44); Carbon Dioxide 22 mmol/L (23-31); Chloride 106 mmol/L (98-107); Estimated GFR 36; Glucose 107 mg/dL (83-110); Phosphorus 3.3 mg/dL (2.3-4.7); Potassium 5.2 mmol/L (3.5-5.1); Sodium 137 mmol/L (136-145)
[2022-06-16] MEDS ORDERED: Sodium Chloride 0.9% 1,000 ML IV SCH (07:15)
[2022-06-16] MEDS: Gabapentin 100 MG CAP PO SCH ×3 (09:00→20:38)
[2022-06-16] MEDS: carBAMazepine 100 mg Chewable Tablet PO SCH ×2 (09:01→20:37)
[2022-06-16] MEDS: Amitriptyline HCl 25 MG TAB PO SCH (09:01)
[2022-06-16] MEDS: Famotidine/PF 20 mg/2ml Vial SLOW IVP SCH (09:03)
[2022-06-16] MEDS: Morphine 4 MG/ML VIAL SLOW IVP PRN (10:20)
[2022-06-16 18:44] LABS: Anion Gap 13 mmol/L (10-20); BUN (Urea Nitrogen) 26 mg/dL (9.8-20.1); Calc. Creatinine Clearance 31 mL/min (70-130); Calcium 8.8 mg/dL (7.8-10.44); Carbon Dioxide 18 mmol/L (23-31); Chloride 106 mmol/L (98-107); Estimated GFR 33; Glucose 169 mg/dL (83-110); Potassium 5.2 mmol/L (3.5-5.1); Sodium 132 mmol/L (136-145)
[2022-06-16] MEDS: Atorvastatin Calcium 40 MG TAB PO SCH (20:37)
[2022-06-16] MEDS: Losartan 25 MG TAB PO SCH (20:37)
[2022-06-16] MEDS: Flecainide 50 MG TAB PO SCH (20:38)
[2022-06-17] MEDS: CEFAZOLIN 2 GM in Sodium Chloride 0.9% 100 ML IVPB SCH ×2 (01:53→09:10)
[2022-06-17] MEDS: Acetaminophen/Codeine 30-300mg Tablet PO SCH ×4 (02:19→20:53)
[2022-06-17] MEDS: Levothyroxine Sodium 100 MCG TAB PO SCH (05:49)
[2022-06-17] MEDS: Acetaminophen 325 MG TAB PO SCH ×4 (05:49→17:07)
[2022-06-17 06:32] LABS: #Eosinphils 0.1 thou/uL (0.0-0.7); #Lymphocytes 3.3 thou/uL (1.20-3.40); #Monocytes 1.3 thou/uL (0.11-0.59); #Neutrophils 6.7 thou/uL (1.40-6.50); %Basophils 0.2 % (0.0-1.0); %Eosinophils 1.2 % (0.0-10.0); %Lymphocytes 29.1 % (21.0-51.0); %Monocytes 11.1 % (0.0-10.0); %Neutrophils 58.3 % (42.0-75.0); Hemoglobin 8.4 g/dL (12.0-16.0); Mean Corpuscular HGB CONC 33.1 g/dL (32.0-36.0); Mean Corpuscular Hemoglobin 32.3 pg (27.0-31.0); Mean Corpuscular Volume 97.5 fl (78.0-98.0); Mean Platelet Volume 7.8 fL (7.4-10.4); Platelet Count 144 10x3/uL (130-400); RBC Distribution Width 13.2 % (11.5-14.5); Red Blood Cell (RBC) Count 2.59 mill/uL (4.20-5.40); White Blood Cell (WBC) Count 11.5 10x3/uL (4.8-10.8)
[2022-06-17 06:56] LABS: Anion Gap 12 mmol/L (10-20); BUN (Urea Nitrogen) 26 mg/dL (9.8-20.1); Calc. Creatinine Clearance 31 mL/min (70-130); Calcium 8.5 mg/dL (7.8-10.44); Carbon Dioxide 19 mmol/L (23-31); Chloride 106 mmol/L (98-107); Estimated GFR 34; Glucose 141 mg/dL (83-110); Magnesium 1.9 mg/dL (1.6-2.6); Phosphorus 2.5 mg/dL (2.3-4.7); Potassium 4.7 mmol/L (3.5-5.1); Sodium 132 mmol/L (136-145)
[2022-06-17] MEDS: Ferrous Sulfate 325 MG TAB PO SCH ×2 (08:00→17:03)
[2022-06-17] MEDS: Flecainide 50 MG TAB PO SCH ×2 (08:01→20:52)
[2022-06-17] MEDS: Gabapentin 100 MG CAP PO SCH (08:01)
[2022-06-17] MEDS: carBAMazepine 100 mg Chewable Tablet PO SCH ×2 (08:02→20:47)
[2022-06-17] MEDS: Amitriptyline HCl 25 MG TAB PO SCH (08:02)
[2022-06-17] MEDS: Ascorbic Acid 500 mg Chewable Tablet PO SCH ×2 (08:03→20:50)
[2022-06-17] MEDS: Polyethylene Glycol 3350 17 GM Packet PO SCH (08:03)
[2022-06-17] MEDS: Senokot S 8.6-50 MG TAB PO SCH ×2 (08:03→20:45)
[2022-06-17] MEDS ORDERED: Gabapentin 100 MG CAP PO SCH (09:00)
[2022-06-17 16:13] LABS: Bacteria/HPF None Seen HPF (None Seen); Bilirubin Negative (Negative); Blood, Urine Negative (Negative); CAUTI Indications for Culture Dysuria,urgency,freq; Clarity Clear (Clear); Glucose, Urine (Dipstick) Normal (Negative); Ketone, Urine Trace mg/dL (Negative); Leukocyte Negative Leu/uL (Negative); Nitrite Negative (Negative); Protein, Urine (Dipstick) 30 mg/dL (Neg-Trace); RBC/HPF 0-3 HPF (0-3); Specific Gravity, Urine 1.024 (1.002-1.036); Squamous Epithelial 0-3 HPF (0-3); Urobilinogen Normal mg/dL (Less than 2); WBC/HPF 0-3 HPF (0-3); pH, Urine 5.5 (5.0-9.0)
[2022-06-17 16:18] LABS: Urine Culture Reflex No No
[2022-06-17] MEDS: Atorvastatin Calcium 40 MG TAB PO SCH (20:46)
[2022-06-17] MEDS: Losartan 25 MG TAB PO SCH (20:51)
[2022-06-18] MEDS: Acetaminophen 325 MG TAB PO SCH ×5 (00:03→16:55)
[2022-06-18] MEDS: Acetaminophen/Codeine 30-300mg Tablet PO SCH ×4 (02:21→20:13)
[2022-06-18] MEDS: Levothyroxine Sodium 100 MCG TAB PO SCH (06:15)
[2022-06-18 06:25] LABS: Anion Gap 10 mmol/L (10-20); BUN (Urea Nitrogen) 24 mg/dL (9.8-20.1); Calc. Creatinine Clearance 33 mL/min (70-130); Calcium 8.8 mg/dL (7.8-10.44); Carbon Dioxide 20 mmol/L (23-31); Chloride 106 mmol/L (98-107); Estimated GFR 36; Glucose 118 mg/dL (83-110); Potassium 4.4 mmol/L (3.5-5.1); Sodium 132 mmol/L (136-145)
[2022-06-18] MEDS: carBAMazepine 100 mg Chewable Tablet PO SCH ×2 (08:21→20:13)
[2022-06-18] MEDS: Ascorbic Acid 500 mg Chewable Tablet PO SCH ×2 (08:21→20:13)
[2022-06-18] MEDS: Ezetimibe 10 MG TAB PO SCH (08:21)
[2022-06-18] MEDS: Flecainide 50 MG TAB PO SCH ×2 (08:21→20:13)
[2022-06-18] MEDS: Furosemide 40 MG TAB PO SCH (08:21)
[2022-06-18] MEDS: Gabapentin 100 MG CAP PO SCH (08:21)
[2022-06-18] MEDS: Clopidogrel Bisulfate 75 MG TAB PO SCH (08:22)
[2022-06-18] MEDS: Ferrous Sulfate 325 MG TAB PO SCH ×2 (08:22→16:55)
[2022-06-18] MEDS: Amitriptyline HCl 25 MG TAB PO SCH (08:22)
[2022-06-18] MEDS: Amlodipine 10 MG TAB PO SCH (08:22)
[2022-06-18] MEDS: Senokot S 8.6-50 MG TAB PO SCH ×2 (08:23→20:13)
[2022-06-18] MEDS: Polyethylene Glycol 3350 17 GM Packet PO SCH (08:23)
[2022-06-18] MEDS ORDERED: Loperamide HCl 2 MG CAP PO SCH (11:00)
[2022-06-18] MEDS ORDERED: Senokot S 8.6-50 MG TAB PO SCH (11:00)
[2022-06-18] MEDS: Atorvastatin Calcium 40 MG TAB PO SCH (20:12)
[2022-06-18] MEDS: Losartan 25 MG TAB PO SCH (20:13)
[2022-06-18] MEDS: Famotidine 20 MG TAB PO SCH (20:13)
[2022-06-19] MEDS: Acetaminophen/Codeine 30-300mg Tablet PO SCH ×5 (02:57→20:21)
[2022-06-19] MEDS: Levothyroxine Sodium 100 MCG TAB PO SCH (05:54)
[2022-06-19] MEDS: Acetaminophen 325 MG TAB PO SCH ×3 (05:55→19:16)
[2022-06-19] MEDS: Amlodipine 10 MG TAB PO SCH (09:02)
[2022-06-19] MEDS: carBAMazepine 100 mg Chewable Tablet PO SCH ×2 (09:03→20:17)
[2022-06-19] MEDS: Polyethylene Glycol 3350 17 GM Packet PO SCH ×2 (09:04→09:12)
[2022-06-19] MEDS: Ferrous Sulfate 325 MG TAB PO SCH ×2 (09:04→16:39)
[2022-06-19] MEDS: Ascorbic Acid 500 mg Chewable Tablet PO SCH ×2 (09:04→20:18)
[2022-06-19] MEDS: Clopidogrel Bisulfate 75 MG TAB PO SCH (09:04)
[2022-06-19] MEDS: Famotidine 20 MG TAB PO SCH ×2 (09:04→20:17)
[2022-06-19] MEDS: Furosemide 40 MG TAB PO SCH (09:04)
[2022-06-19] MEDS: Flecainide 50 MG TAB PO SCH ×2 (09:04→20:18)
[2022-06-19] MEDS: Ezetimibe 10 MG TAB PO SCH (09:04)
[2022-06-19] MEDS: Gabapentin 100 MG CAP PO SCH ×2 (09:04→09:06)
[2022-06-19] MEDS: Amitriptyline HCl 25 MG TAB PO SCH (09:04)
[2022-06-19] MEDS: Senokot S 8.6-50 MG TAB PO SCH ×2 (09:11→20:21)
[2022-06-19] MEDS ORDERED: Loperamide HCl 2 MG CAP PO SCH (16:45)
[2022-06-19] MEDS: Losartan 25 MG TAB PO SCH (20:17)
[2022-06-19] MEDS: Atorvastatin Calcium 40 MG TAB PO SCH (20:18)
[2022-06-19] MEDS: Cyclobenzaprine 10 MG TAB PO PRN (22:00)
[2022-06-20] MEDS: Acetaminophen 325 MG TAB PO SCH ×3 (00:17→12:20)
[2022-06-20] MEDS: Ondansetron PF 4 MG/2 ML Vial IVP PRN ×2 (01:29→09:40)
[2022-06-20] MEDS: Acetaminophen/Codeine 30-300mg Tablet PO SCH ×2 (03:15→12:19)
[2022-06-20] MEDS: Cyclobenzaprine 10 MG TAB PO PRN (05:01)
[2022-06-20] MEDS: Levothyroxine Sodium 100 MCG TAB PO SCH (05:02)
[2022-06-20] MEDS ORDERED: Spironolactone 25 MG TAB PO SCH (09:00)
[2022-06-20] MEDS: Famotidine 20 MG TAB PO SCH (10:34)
[2022-06-20] MEDS: Amlodipine 10 MG TAB PO SCH (10:34)
[2022-06-20] MEDS: Ezetimibe 10 MG TAB PO SCH (10:34)
[2022-06-20] MEDS: Clopidogrel Bisulfate 75 MG TAB PO SCH (10:34)
[2022-06-20] MEDS: Furosemide 40 MG TAB PO SCH (10:35)
[2022-06-20] MEDS: Gabapentin 100 MG CAP PO SCH (10:35)
[2022-06-20] MEDS: carBAMazepine 100 mg Chewable Tablet PO SCH (10:44)
[2022-06-20] MEDS: Amitriptyline HCl 25 MG TAB PO SCH (10:44)
[2022-06-20] MEDS: Flecainide 50 MG TAB PO SCH (10:44)
[2022-06-20] MEDS: Ferrous Sulfate 325 MG TAB PO SCH (12:18)
[2022-06-20 12:19] VITALS: TEMP 98.4
[2022-06-20] MEDS: Ascorbic Acid 500 mg Chewable Tablet PO SCH (12:19)
[2022-06-20] MEDS: Polyethylene Glycol 3350 17 GM Packet PO SCH (12:20)
[2022-06-20] MEDS: Senokot S 8.6-50 MG TAB PO SCH (12:20)
[2022-06-20 16:24] VITALS: BP 152/73
[2022-06-20] MEDS ORDERED: Loperamide HCl 2 MG CAP PO SCH (16:30)
== END 2022-06-20 18:00 | disposition swing bed (61) | DRG 481 ==
LOC: SURG A 14:47
PROVIDERS: ADMIT Surgery; ATTEND Surgery
PROC: 0QS604Z Reposition Right Upper Femur with Internal Fixation Device, Open Approach (ICD-10-PCS; principal; 2022-06-15)
DX: S72.141A Displaced intertrochanteric fracture of right femur, initial encounter for closed fracture (principal); E87.1 Hypo-osmolality and hyponatremia; I25.10 Atherosclerotic heart disease of native coronary artery without angina pectoris; E11.22 Type 2 diabetes mellitus with diabetic chronic kidney disease; I12.9 Hypertensive chronic kidney disease with stage 1 through stage 4 chronic kidney disease, or unspecified chronic kidney disease; E78.5 Hyperlipidemia, unspecified; I48.91 Unspecified atrial fibrillation; G50.0 Trigeminal neuralgia; M19.90 Unspecified osteoarthritis, unspecified site; W18.31XA Fall on same level due to stepping on an object, initial encounter; E87.5 Hyperkalemia; N18.30 Chronic kidney disease, stage 3 unspecified; T50.2X5A Adverse effect of carbonic-anhydrase inhibitors, benzothiadiazides and other diuretics, initial encounter; Z79.899 Other long term (current) drug therapy
CPT/HCPCS: 36415; 36416; 71045; 80048; 81001; 83735; 84100; 85025; 85610; 85730; C1713; J1100; J2270; J2405; J2704; J3010; J3490; J7050; S0028

== ENCOUNTER 2022-09-13 11:37 | Emergency (ER) | payer OTHER, MEDICARE ==
[2022-09-13] MEDS ORDERED: Boostrix 0.5 ML (Tdap) VIAL (>/=7 yrs of age) ONE (14:01)
== END 2022-09-13 14:34 | disposition home or self-care (01) ==
LOC: ERS 11:37
DX: S00.91XA Abrasion of unspecified part of head, initial encounter (principal); S86.912A Strain of unspecified muscle(s) and tendon(s) at lower leg level, left leg, initial encounter; S46.912A Strain of unspecified muscle, fascia and tendon at shoulder and upper arm level, left arm, initial encounter; I25.10 Atherosclerotic heart disease of native coronary artery without angina pectoris; I10 Essential (primary) hypertension; E11.9 Type 2 diabetes mellitus without complications; W01.198A Fall on same level from slipping, tripping and stumbling with subsequent striking against other object, initial encounter; Z23 Encounter for immunization; Z79.899 Other long term (current) drug therapy
CPT/HCPCS: 70450; 72125; 90471; 90715; 93005

== ENCOUNTER 2023-02-10 10:49 | Outpatient (CLI) | payer MEDICARE ==
[2023-02-10 13:00] LABS: #Eosinphils 0.2 10x3/uL (0.0-0.5); #Monocytes 0.8 10x3/uL (0.0-1.1); #Neutrophils 4.9 10x3/uL (1.5-8.4); %Basophils 0.5 % (0.0-2.0); %Eosinophils 2.2 % (0.0-6.0); %Lymphocytes 23.7 % (18.0-47.0); %Monocytes 10.4 % (0.0-10.0); %Neutrophils 62.8 % (40.0-75.0); Hematocrit 31.7 % (34.9-44.5); Hemoglobin 9.9 g/dL (12.0-15.5); Mean Corpuscular HGB CONC 31.2 g/dL (32.0-36.0); Mean Corpuscular Hemoglobin 29.3 pg (27.0-33.0); Mean Corpuscular Volume 93.8 fl (81.6-98.3); Mean Platelet Volume 9.4 fl (7.4-10.4); Platelet Count 318 10x3/uL (150-450); RBC Distribution Width 16.3 % (11.5-14.5); Red Blood Cell (RBC) Count 3.38 10x6/uL (3.90-5.03); White Blood Cell (WBC) Count 7.9 10x3/uL (3.5-10.5)
[2023-02-10 13:50] LABS: Anion Gap 15 mmol/L (10-20); BUN (Urea Nitrogen) 28 mg/dL (9.8-20.1); Calc. Creatinine Clearance 0 mL/min (70-130); Calcium 8.7 mg/dL (7.8-10.44); Carbon Dioxide 21 mmol/L (23-31); Chloride 105 mmol/L (98-107); Estimated GFR 39; Glucose 97 mg/dL (83-110); Potassium 5.2 mmol/L (3.5-5.1); Sodium 136 mmol/L (136-145)
== END 2023-02-10 10:50 | disposition home or self-care (01) ==
LOC: LABBT 10:49
PROVIDERS: ATTEND Orthopaedic Surgery
DX: Z01.818 Encounter for other preprocedural examination (principal); M19.012 Primary osteoarthritis, left shoulder; M75.102 Unspecified rotator cuff tear or rupture of left shoulder, not specified as traumatic
CPT/HCPCS: 80048; 85025; 93005; 93010

== ENCOUNTER 2023-03-27 13:25 | Outpatient (CLI) | payer MEDICARE ==
[2023-03-27 14:51] LABS: #Basophils 0.1 10x3/uL (0.0-0.2); #Eosinphils 0.2 10x3/uL (0.0-0.5); #Monocytes 0.8 10x3/uL (0.0-1.1); #Neutrophils 4.3 10x3/uL (1.5-8.4); %Basophils 0.9 % (0.0-2.0); %Eosinophils 2.3 % (0.0-6.0); %Lymphocytes 34.4 % (18.0-47.0); %Monocytes 9.6 % (0.0-10.0); %Neutrophils 52.6 % (40.0-75.0); Hemoglobin 11.6 g/dL (12.0-15.5); Mean Corpuscular HGB CONC 31.4 g/dL (32.0-36.0); Mean Corpuscular Hemoglobin 30.1 pg (27.0-33.0); Mean Corpuscular Volume 95.9 fl (81.6-98.3); Mean Platelet Volume 9.3 fl (7.4-10.4); Platelet Count 288 10x3/uL (150-450); RBC Distribution Width 17.1 % (11.5-14.5); Red Blood Cell (RBC) Count 3.86 10x6/uL (3.90-5.03); White Blood Cell (WBC) Count 8.1 10x3/uL (3.5-10.5)
[2023-03-27 15:02] LABS: Anion Gap 14 mmol/L (10-20); BUN (Urea Nitrogen) 34 mg/dL (9.8-20.1); Calc. Creatinine Clearance 0 mL/min (70-130); Calcium 9.5 mg/dL (7.8-10.44); Carbon Dioxide 23 mmol/L (23-31); Chloride 104 mmol/L (98-107); Estimated GFR 32; Glucose 92 mg/dL (83-110); Sodium 136 mmol/L (136-145)
== END 2023-03-27 13:26 | disposition home or self-care (01) ==
LOC: LABBT 13:25
PROVIDERS: ATTEND Orthopaedic Surgery
DX: Z01.818 Encounter for other preprocedural examination (principal); M75.102 Unspecified rotator cuff tear or rupture of left shoulder, not specified as traumatic; M19.012 Primary osteoarthritis, left shoulder
CPT/HCPCS: 80048; 85025; 93005; 93010

== ENCOUNTER 2023-03-31 05:24 | Observation (INO) | payer MEDICARE ==
[2023-03-31] MEDS ORDERED: Tranexamic Acid 1,000 MG/10 ML VIAL ONE (06:16)
[2023-03-31] MEDS ORDERED: Sodium Chloride 0.9% 100 ML ONE ×2 (06:16→06:51)
[2023-03-31] MEDS ORDERED: Esmolol 100 MG/10 ML VIAL ONE (06:16)
[2023-03-31] MEDS ORDERED: fentaNYL 50 mcg/mL 1 mL Vial ONE ×2 (06:16→06:44)
[2023-03-31] MEDS ORDERED: Propofol 1,000 MG/100 ML VIAL IV ONE ×2 (06:16→06:17)
[2023-03-31] MEDS ORDERED: Vancomycin 1 GM/200 ML (FROZEN) BAG ONE (06:16)
[2023-03-31] MEDS ORDERED: Ropivacaine 0.5% HCl/PF (150 MG/30 ML VIAL) ONE (06:44)
[2023-03-31] MEDS ORDERED: Ropivacaine 0.2% HCl/PF 20 ML ONE (06:44)
[2023-03-31] MEDS ORDERED: CEFAZOLIN 2 GM VIAL ONE (06:51)
[2023-03-31] MEDS ORDERED: Dexamethasone 20 MG/5 ML VIAL ONE (07:05)
[2023-03-31] MEDS ORDERED: Lidocaine 1% PF 5 ML VIAL ONE (07:05)
[2023-03-31] MEDS ORDERED: Ondansetron PF 4 MG/2 ML Vial ONE (07:05)
[2023-03-31] MEDS ORDERED: PROPOFOL 200 MG/20 ML VIAL ONE (07:05)
[2023-03-31] MEDS ORDERED: Vasopressin 20 UNITS/ML VIAL ONE (07:19)
[2023-03-31] MEDS ORDERED: fentaNYL 50 mcg/mL 1 mL Vial SLOW IVP PRN (07:26)
[2023-03-31] MEDS ORDERED: Zolpidem Tartrate 5 MG TAB PO PRN (07:30)
[2023-03-31] MEDS ORDERED: Ropivacaine 0.2% 550 ML 550 ML NERVE BLCK SCH (07:30)
[2023-03-31] MEDS ORDERED: traMADol HCl 50 MG TAB PO PRN ×2 (07:30)
[2023-03-31] MEDS ORDERED: Promethazine HCl 25 MG/ML VIAL IM PRN (07:30)
[2023-03-31] MEDS ORDERED: Ondansetron PF 4 MG/2 ML Vial IVP PRN (07:30)
[2023-03-31 13:57] VITALS: BMI 26.6
[2023-03-31] MEDS ORDERED: hydrALAZINE 20 MG/ML VIAL SLOW IVP PRN ×2 (14:25→14:53)
[2023-03-31] MEDS ORDERED: HumaLOG 300 UNITS/3 ML VIAL SC PRN (14:30)
[2023-03-31] MEDS: CEFAZOLIN 2 GM in Sodium Chloride 0.9% 100 ML IVPB SCH ×2 (15:01→23:45)
[2023-03-31] MEDS: HYDROcodone/Acetaminophen 5/325 mg Tablet PO PRN ×2 (17:39→21:55)
[2023-03-31] MEDS ORDERED: FLU VACC QS2023(65UP)/MF59C/PF 60 MCG/0.5 ML SYRINGE IM ONE (18:00)
[2023-03-31] MEDS ORDERED: Flecainide 50 MG TAB PO SCH (21:00)
[2023-03-31] MEDS ORDERED: Atorvastatin Calcium 40 MG TAB PO SCH (21:00)
[2023-03-31] MEDS ORDERED: Amitriptyline HCl 25 MG TAB PO SCH (21:00)
[2023-03-31] MEDS: carBAMazepine 100 mg Chewable Tablet PO SCH (21:42)
[2023-03-31] MEDS: hydrALAZINE 25 MG TAB PO SCH (21:43)
[2023-04-01] MEDS: HYDROcodone/Acetaminophen 5/325 mg Tablet PO PRN ×2 (03:11→09:31)
[2023-04-01] MEDS ORDERED: Levothyroxine Sodium 100 MCG TAB PO SCH (06:00)
[2023-04-01] MEDS ORDERED: Spironolactone 25 MG TAB PO SCH (08:00)
[2023-04-01] MEDS ORDERED: Ferrous Sulfate 325 MG TAB PO SCH (08:00)
[2023-04-01] MEDS ORDERED: Methocarbamol 500 MG TAB PO PRN (08:11)
[2023-04-01] MEDS ORDERED: Gabapentin 100 MG CAP PO SCH (09:00)
[2023-04-01] MEDS ORDERED: Losartan 25 MG TAB PO SCH (09:00)
[2023-04-01] MEDS ORDERED: Clopidogrel Bisulfate 75 MG TAB PO SCH (09:00)
[2023-04-01] MEDS ORDERED: Alogliptin 25 MG TAB PO SCH (09:00)
[2023-04-01] MEDS ORDERED: Amlodipine 10 MG TAB PO SCH (09:00)
[2023-04-01] MEDS ORDERED: Cholecalciferol 1,000 UNITS (25 MCG) TAB PO SCH (09:00)
[2023-04-01] MEDS ORDERED: Ezetimibe 10 MG TAB PO SCH (09:00)
[2023-04-01] MEDS ORDERED: Cyanocobalamin (Vitamin B-12) 1,000 MCG TAB PO SCH (09:00)
[2023-04-01] MEDS: carBAMazepine 100 mg Chewable Tablet PO SCH (09:31)
[2023-04-01] MEDS: hydrALAZINE 25 MG TAB PO SCH (09:33)
[2023-04-01] MEDS ORDERED: Flecainide 50 MG TAB PO SCH ×2 (09:45→21:00)
[2023-04-01 11:28] VITALS: BP 168/78; TEMP 98.1
== END 2023-04-01 17:34 | disposition home or self-care (01) ==
LOC: SDC 05:24 → SURG A 12:06
PROVIDERS: ADMIT Orthopaedic Surgery; ATTEND Orthopaedic Surgery
PROC: 0RRK00Z Replacement of Left Shoulder Joint with Reverse Ball and Socket Synthetic Substitute, Open Approach (ICD-10-PCS; principal; 2023-03-31)
PROC: 0LS40ZZ Reposition Left Upper Arm Tendon, Open Approach (ICD-10-PCS; 2023-03-31)
DX: M12.812 Other specific arthropathies, not elsewhere classified, left shoulder (principal); M75.22 Bicipital tendinitis, left shoulder; M25.811 Other specified joint disorders, right shoulder; M75.102 Unspecified rotator cuff tear or rupture of left shoulder, not specified as traumatic; I96 Gangrene, not elsewhere classified; E78.5 Hyperlipidemia, unspecified; I25.10 Atherosclerotic heart disease of native coronary artery without angina pectoris; I12.9 Hypertensive chronic kidney disease with stage 1 through stage 4 chronic kidney disease, or unspecified chronic kidney disease; F32.A Depression, unspecified; Z87.891 Personal history of nicotine dependence; F41.9 Anxiety disorder, unspecified; Z88.8 Allergy status to other drugs, medicaments and biological substances; Z88.5 Allergy status to narcotic agent; Z90.49 Acquired absence of other specified parts of digestive tract; Z95.5 Presence of coronary angioplasty implant and graft
CPT/HCPCS: 23430; 23472; 82962 ×2; 90694; 97110 ×2; 97116 ×2; 97530; 97535; A4306; C1713 ×5; C1776 ×3; G0008; J0360; J3010; J3370; 36416; 90471; J1100; J2405; J2704; J2795; J3490

== ENCOUNTER 2023-08-28 11:50 | Outpatient (CLI) | payer MEDICARE | END 2023-08-28 11:51 | disposition home or self-care (01) | LOC: SCSRAD 11:50 | PROVIDERS: ATTEND Family Medicine | DX: R05.1 Acute cough (principal) | CPT/HCPCS: 71046 ==